=== PATIENT | male | born 1990 | race Caucasian/White ===

== ENCOUNTER 2022-12-25 12:59 | Outpatient (CLI) | payer OTHER, SELFPAY ==
[2022-12-27 17:04] LABS: NIL 0.01 IU/mL; Quantiferon TB Plus, 1T NEGATIVE (NEGATIVE); TB1-NIL 0.05 IU/mL; TB2-NIL 0.03 IU/mL
== END 2022-12-25 13:00 | disposition home or self-care (01) ==
LOC: ANHGOSHLAB 13:01
PROVIDERS: PCP Emergency Medicine; Visit Provider Family Medicine
DX: Z02.1 Encounter for pre-employment examination (principal)
CPT/HCPCS: 36415; 86480